=== PATIENT | female | born 1975 | race Caucasian/White ===

== ENCOUNTER 2017-02-18 16:35 | Emergency (ER) | payer OTHER ==
--- NOTE | 2017-02-18 19:35 | DIAGNOSTIC IMAGING REPORT ---
PROCEDURE: XR CHEST 2 VIEW INDICATION: CHEST PAIN TECHNIQUE: PA and lateral views. COMPARISON: None. FINDINGS: Allowing for overlying wires and electrodes, lungs are clear. Heart and mediastinum are normal. Thorax is normal. IMPRESSION: 1. Negative chest.
--- NOTE | 2017-02-18 19:48 | ED CLINICAL REPORT ---
Clinical Report - Physicians/Mid Levels [facility] [address] [place] [address] 02/18/2017 16:36 Patient: ANNETTE February Arrived- By private vehicle. Historian- patient. HISTORY OF PRESENT ILLNESS Chief Complaint: CHEST PAIN. It is described as dull. No radiation. At its maximum, severity described as moderate. When seen in the E.D., severity described as moderate. Modifying factors. Not worsened by anything. Not relieved by anything. This started today and is still present. It is not gone now. It was gradual in onset and has been constant and waxing/waning (several weeks). The patient cannot recall the circumstances at the onset. No nausea, vomiting, difficulty breathing or diaphoresis. (has been having decreased appetite, cough, fever, facial swelling, joint pain, malaise as well. when all of this started. no sick contacts.). No additional chest pain. Similar symptoms previously: None. Recent medical care: The patient was seen recently in a clinic (referred here). REVIEW OF SYSTEMS The patient has had fever, chills, a cough and headache and blurred vision. She has had abdominal pain, black stools, joint pain, and bloody stools. All systems otherwise negative, except as recorded above. PAST HISTORY See nurses notes. Problems: no known problems. Medications: None. Allergies: Opiods. SOCIAL HISTORY Smoker- current status unknown. Occasional alcohol use. History of drug use: marijuana. No recent travel. Is a local resident. ADDITIONAL NOTES The nursing notes have been reviewed. PHYSICAL EXAM Vital Signs: 02/18/2017 16:47 BP: 208/110. HR: 76. RR: 20. O2 saturation: 99%. Temp: 98.4 F. Blood pressure normal. Oxygen saturation normal. Appearance: Alert. Oriented X3. No acute distress. No marfanoid habitus. Eyes: Pupils equal, round and reactive to light. Eyes normal inspection. (no facial edema). ENT: Ears normal. Nose normal. Pharynx normal. Neck: Normal inspection. Neck supple. CVS: Normal heart rate and rhythm. Heart sounds normal. Pulses normal. Respiratory: No respiratory distress. Breath sounds normal. Chest nontender. No rales, rhonchi or wheezes. Abdomen: Soft and nontender. Bowel sounds normal. Back: Normal external inspection. Skin: Skin warm and dry. Normal skin color. No rash. Normal skin turgor. Extremities: Extremities exhibit normal ROM. No lower extremity edema. Neuro: Oriented X 3. No motor deficit. No sensory deficit. LABS, X-RAYS, AND EKG EKG: Normal sinus rhythm. Normal P waves. Normal YAKOV. Normal QRS complex. Normal axis. Normal ST and T waves, QT and QTc. The study has been interpreted contemporaneously by me. The study has been independently viewed by me. The EKG appears to be a good tracing. Chest X-ray: (PROCEDURE: XR CHEST 2 VIEW INDICATION: CHEST PAIN TECHNIQUE: PA and lateral views. COMPARISON: None. FINDINGS: Allowing for overlying wires and electrodes, lungs are clear. Heart and mediastinum are normal. Thorax is normal. IMPRESSION: 1. Negative chest.). Views: PA and lateral. The X-rays were independently viewed by me and interpreted by the radiologist. The X-rays were discussed with the radiologist (via pacs). Laboratory Tests: UA-Culture if indicated: (RIVKA: 02/18/2017 17:40) ( MsgRcvd 02/18/2017 18:22) Final results Test Result Flag Units (Reference) URINE COLOR YELLOW URINE APPEARANCE CLEAR URINE GLUCOSE NEGATIVE (NEGATIVE) URINE BILIRUBIN NEGATIVE (NEGATIVE) URINE KETONE NEGATIVE (NEGATIVE) URINE SPECIFIC GRAVITY 1.025 (1.010-1.030) URINE PH 6.0 (5.0-8.0) URINE PROTEIN 3+ (NEGATIVE) URINE UROBILINOGEN 0.2 EU/dL (0.2-1.0) URINE NITRITE NEGATIVE (NEGATIVE) URINE BLOOD 3+ (NEGATIVE) URINE LEUK ESTERASE NEGATIVE (NEGATIVE) URINE RBC 10-25 rbc/hpf (0-1) URINE WBC 10-15 wbc/hpf (0-1) URINE EPITHELIAL CELLS 10-15 EPI/hpf (0-5) URINE BACTERIA MODERATE (2+ TO 3+) (NONE SEEN) URINE COMMENT CULTURE INDICATED 10-15 HYALINE CAST. FEW YEAST.URINE CULTURES ARE SET-UP BASED ON THE FOLLOWING CRITERIA:POSITIVE NITRITEPOSITIVE LEUKOCYTE ESTERASEGREATER THAN 10 WHITE BLOOD CELLSMODERATE (2+) OR GREATER BACTERIA Urine: (RIVKA: 02/18/2017 17:40) ( [facility] 02/18/2017 18:08) Final results Test Result Flag Units (Reference) URINE NEGATIVE CBC w Diff: (RIVKA: 02/18/2017 17:34) ( [facility] 02/18/2017 17:47) Final results Test Result Flag Units (Reference) WHITE BLOOD COUNT 4.8 K/uL (4.5-11.5) RED BLOOD COUNT 3.75 L M/uL (4.00-5.20) HEMOGLOBIN 11.7 L gm/dL (12.0-16.0) HEMATOCRIT 34.6 L % (36.0-46.0) MEAN CELL VOLUME 92 fL (80-100) MEAN CORPUSCULAR HGB 31 pg (26-34) MEAN CORPUSCULAR HGB CONC 34 g/dL (31-37) RED CELL DISTRIBUTION WIDTH 12.6 % (11.6-14.8) PLATELET COUNT 211 K/uL (150-400) NEUTROPHIL % 73.5 % (50-75) LYMPH % 16.0 L % (25-40) MONO % 10.0 % (3-14) EOSINOPHIL % 0.1 % (0-4) BASOPHIL % 0.4 % (0-2) PT with INR: (RIVKA: 02/18/2017 17:34) ( [facility] 02/18/2017 17:52) Final results Test Result Flag Units (Reference) INR 0.8 (0.8-1.2) Low Intensity Therapy: INR 1.5-2.0 PT range 18.5-23.1Mod.Intensity Therapy: INR 2.0-3.0 PT range 23.1-31.5High Intensity Therapy: INR 2.5-3.5 PT range 27.4-35.5High Intensity Therapy 2: INR 3.0-4.0 PT range 31.5-39.3 BNP: (RIVKA: 02/18/2017 17:34) ( MsgRcvd 02/18/2017 18:10) Final results Test Result Flag Units (Reference) B-TYPE NATRIURETIC PEPTIDE 119 H pg/ml (5-100) CMP: (RIVKA: 02/18/2017 17:34) ( MsgRcvd 02/18/2017 19:16) Final results Test Result Flag Units (Reference) GLUCOSE 106 mg/dL (70-110) BUN 21 H mg/dL (7-18) CREATININE 1.1 mg/dL (0.6-1.3) Estimated GFR 57.89 mL/min Estimated GFR- >60 mL/min Note: Persistent reduction over 3 months in eGFR<60 mL/min/1.73 m2 defines CKD. Patients with eGFR values>=60 mL/min/1.73 m2 may also have CKD if evidence ofpersistent proteinuria. Additional information may be foundat www.kidney.org. SODIUM 135 L mmol/L (136-145) POTASSIUM 5.2 H mmol/L (3.5-5.1) CHLORIDE 106 mmol/L (98-107) CARBON DIOXIDE 24 mmol/L (21-32) CALCIUM 8.3 L mg/dL (8.5-10.1) TOTAL PROTEIN 5.9 L g/dL (6.4-8.2) ALBUMIN 2.5 L g/dL (3.3-5.0) BILIRUBIN, TOTAL 0.3 mg/dL (0.0-1.0) ALKALINE PHOSPHATASE 50 U/L (46-116) AST (SGOT) 17 U/L (15-37) ALT (SGPT) 16 U/L (12-78) TROPONIN I <0.05 ng/mL (0.00-1.5) TROPONIN REFERENCE RANGE:<0.1 NEGATIVE0.1-1.5 INDETERMINANT>1.5 POSITIVE CHOLESTEROL 197 mg/dL (140-200) TRIGLYCERIDES 100 mg/dL (30-200) HDL CHOLESTEROL 44 mg/dL (32-96) LDL,CALCULATED 133 mg/dL Normal range for LDL by direct measurement is 66-178The LDL reported is a calculated value and may approximatea direct measurement. CHOL/HDL 4.5 LDL/HDL 3.0 CORONARY RISK FACTOR 0.9 (0.4-1.0) Culture, Urine: (RIVKA: 02/18/2017 17:40) ( MsgRcvd 02/20/2017 10:38) Final results Test Result Flag Units (Reference) CULTURE, URINE DATE: 02/20/17 NO SIGNIFICANT ISOLATION: NO SIGNIFICANT ISOLATION PRELIM REPORT: FINAL REPORT . PROGRESS AND PROCEDURES Course of Care: the patient is a pleasant 41-year-old female presenting for evaluation of multiple medical concerns. At this time metabolic versus autoimmuneetiology favored. Patient will be evaluated with extensive laboratory workup including urinalysis, BNP, troponin, chest x-ray, EKG CBC, andCMP. Patient is agreeable to the treatment plan. Patient is currently resting in bed and in no acute distress. The concern for nephrotic syndrome given the patient's reported facial edema. No signs of infection noted to the patient'sface at this time. We'll monitor closely. Patient's workup was remarkable for elevated protein in the patient's urine. Patient also has signs of urinary tract infection. Because of the patient's proteinuria, We will investigate the patient's possible nephrotic syndrome with a lipid panel. There was no order in the patient's chart for a lipid panel. Head: The labs and manually enter a lipid panel for the patient. Patient is agreeable to treatment plan. Patient's liver panel is noted to be unremarkable. No acute findings noted. Would make nephrotic syndrome most likely however patient will still need evaluation for the elevated protein in her urine. Patient is noted to have a urinary tract infection. Antibiotic provided here in the emergency department as well as prescription. The rest of the patient's laboratory studies is otherwise unremarkable including EKG and chest x-ray. Had long discussion in regards to patient's symptoms here in the emergency department and need for prompt outpatient follow-up and management of her symptoms. Do not fill patient is admitted to the hospital require further emergency department workup/evaluation. Patient's blood pressure significantly improved while here in the emergency department. No signs of end organ damage. i discussed with the patient'sin regards to her workup here in the emergency department including diagnosis, home care, follow-up, and return precautions. All questions have been answered. The patient expressed understanding of these instructions and was agreeable to them. CLINICAL IMPRESSION 02/18/2017 19:00 BP: 161/87. HR: 78. RR: 20. O2 saturation: 99%. Temp: 98.6 F. Hypertensive. Oxygen saturation normal. Atypical chest pain (acute). Acute urinary tract infection. (acute facial edema). acute proteinuria. INSTRUCTIONS Warnings: GENERAL WARNINGS: Return or contact your physician immediately if your condition worsens or changes unexpectedly, if not improving as expected, or if other problems arise. SPECIFICALLY, return if you develop chest, neck, jaw, shoulder, arm, or back pain, difficulty breathing, a fluttering sensation in your chest, lightheadedness, fainting, excessive fatigue, or sudden sweating. Your Current Medications: CONTINUE TAKING THE FOLLOWING MEDICATIONS: None*. Prescription Medications: Keflex 500 mg: take 1 capsule orally every 8 hours for 5 days. No refill. Substitution is permissible. (disp 15 caps) Follow-up: Return to the emergency department as needed. Follow up with your doctor in three days. Reason for referral: recheck today's concerns. Summary of care provided to patient via paper. Screening today revealed the patient's blood pressure to be in the normal range. The patient should follow up with a primary care provider for blood pressure management. Understanding of the discharge instructions verbalized by patient. Follow-up with: [facility], , , [address], , [place], [address] Follow up in three. Reason for referral: contact if you do not have a primary care doctor. Summary of care provided to patient via paper. (Electronically signed by Elfego Cameron Dr. 02/21/2017 11:43)
--- NOTE | 2017-02-18 19:48 | ED ORDER SUMMARY ---
..... Patient: ANNETTEFebruary OrderSheet [facility] VisitID: [id number] [address] [place] [address] 41y, F Registration Date/Time: 02/18/2017 ORDER SHEET Weight: 51.2 kg (stated) Allergies: Opiods GENERAL ORDERS: Chest 2V Urgent (16:55 02/18/2017 Israel Long) (Ack 16:59 KHoerner) (19:05 LWhalen R.N.) Fuel Retrofitting Technician (Continuous) (CP) (16:56 02/18/2017 Israel Long) (Ack 16:59 KHoerner) (17:25 LWhalen R.N.) CBC w Diff Urgent (16:56 02/18/2017 Israel Long) (Ack 16:59 KHoerner) (17:37 KHoerner) CMP Urgent (16:56 02/18/2017 Israel Long) (Ack 16:59 KHoerner) (17:37 KHoerner) UA-Culture if indicated Urgent (16:56 02/18/2017 Israel Logn) (Ack 16:59 KHoerner) (18:28 KHoerner) PT with INR Urgent (16:56 02/18/2017 Israel Long) (Ack 16:59 KHoerner) (17:37 KHoerner) Troponin-I Urgent (16:56 02/18/2017 Israel Long) (Ack 16:59 KHoerner) (17:37 KHoerner) BNP Urgent (16:56 02/18/2017 Israel Long) (Ack 16:59 KHoerner) (17:37 KHoerner) Urine Urgent (16:56 02/18/2017 Israel Long) (Ack 16:59 KHoerner) (18:28 KHoerner) Pulse oximeter (16:56 02/18/2017 Israel Long) (Ack 16:59 KHoerner) (17:25 LWhalen R.N.) EKG - ER Stat (17:14 02/18/2017 Israel Long) (17:25 David R.N.) (17:25 Antwan) - (lipid panel) (19:00 02/18/2017 Israel Long) (19:03 Antwan) MEDICATION ORDERS: Keflex PO 500 mg (NOW) (19:34 02/18/2017 Israel Long) (Ack 19:41 Yesi R.N.) (19:44 Yesi R.N.) Keflex PO 500 mg (NOW) (19:46 02/18/2017 Israel Long) (Cancelled: Duplicate Order19:47 Yesi Armenta) IV FLUIDS: IV Saline Lock (16:56 02/18/2017 Israel Long) (17:25 David R.NLoyda) IV NS : initial bolus 1000 mL (1000 mL/hr), then none - for X1 (NOW) (18:58 02/18/2017 Israel Long) (19:17 CheyanneQuivearleth R.N.) ORDER SHEET NOTES: [Electronically signed by Adam Bustos R.N. (19:58 02/18/2017)] [Electronically signed by Elfego Cameron Dr. (11:43 02/21/2017)] [Electronically locked/signed by Adam Bustos R.N. (19:58 02/18/2017)]
--- NOTE | 2017-02-18 19:48 | ED NURSING NOTES ---
Clinical Report - Nurses [place] [address] [place] [address] 02/18/2017 16:36 Patient: SARAH BRYANT TRIAGE Triage time 16:47 Feb 18 2017. Acuity: LEVEL 3. Chief Complaint: FEVER, CHILLS, MUSCLE ACHES, SWELLING, FATIGUE, POOR APPETITE, BLOOD PRESSURE CHECK, HEADACHE, DIZZINESS, NUMBNESS, WEAKNESS, CONFUSION, EYE PAIN, EAR PAIN, NASAL CONGESTION, COUGH, NAUSEA, VOMITING, DIARRHEA, NECK PAIN, BACK PAIN and JOINT PAIN. ARINA COMA SCORE: Arina Coma Scale: 15- eyes open spontaneously (4); best verbal response- oriented x 4 (5); best motor response- obeys commands (6). --16:53 Clara Toribio R.N. 16:47 02/18/17. BP: 208/110. HR: 76. RR: 20. O2 saturation: 99%. Temp: 98.4 F. Pain level now 0/10. --16:53 Clara Toribio R.N. Weight: 51.2 kg stated. Height/Length: 64 inches Per Patient. BMI: 19.4. --16:52 Clara Toribio R.N. Medications None. --16:50 Clara Toribio R.N. Allergies Opiods. --16:50 Clara Toribio R.N. History Arrived by private vehicle. Historian: patient. Accompanied by family. Primary physician (Miguel liang). Onset. (Has been going on for three weeks). She has had fever, weakness, a cough and skin rash. Reports muscle aches. PAST MEDICAL HX: Immunizations: status is unknown. Last normal menstrual period- January 26. SOCIAL HX: Current every day heavy tobacco smoker (cigarette)- less than 1 pack per day. Occasional alcohol use. History of drug use: marijuana. SELF HARM ASSESSMENT: A self harm assessment was performed. The patient answered "no" to the question "Have you recently felt down, depressed, or hopeless?" and "Do you have thoughts of harming or killing yourself?". FALL RISK ASSESSMENT: Fall risk assessment completed. No fall risk identified. NUTRITIONAL RISK ASSESSMENT: The nutritional risk assessment revealed no deficiencies. FUNCTIONAL ASSESSMENT: Functional assessment: no impairments noted. LEARNING NEEDS ASSESSMENT: The learning needs assessment revealed no barriers. ABUSE ASSESSMENT: Abuse assessment: (yes) The patient was asked "Do you feel safe in your home?". SKIN INTEGRITY ASSESSMENT: Skin integrity risk assessment completed. No skin integrity risk identified. --16:53 Clara Toribio R.N. PROBLEMS: no known problems. ADDITIONAL SURGERIES: Laparoscopy. --16:51 Clara Toribio R.N. Interventions ID and allergy band on patient. --16:53 Clara Toribio R.N. PHYSICAL ASSESSMENT Ambulatory to room. GENERAL / NEURO / PSYCH: Alert. Oriented X 4. Appears in no acute distress. HEENT: Pupils equal, round and reactive to light. No facial asymmetry noted. Mucous membranes are pink. RESPIRATORY: Respirations not labored. Chest nontender. Breath sounds within normal limits. CVS: Normal sinus rhythm noted. Capillary refill less than 2 seconds. Pulses within normal limits. GI / : Abdomen soft and nontender and normal bowel sounds. SKIN: Skin is warm and dry. Skin rash. Normal skin turgor. --19:14 Clara Toribio R.N. NURSING PROGRESS NOTES 17:25 02/18/2017 Site #1 started via IV in the right antecubital space with an 20g angiocath, with aseptic technique and good blood return; one attempt. Blood drawn: rainbow set. Labeled in the presence of the patient and sent to the lab. Saline lock flushed with 10 mL saline. --17:25 Clara Toribio R.N. 17:26 02/18/17. EKG time: (1716). EKG was performed by a tech and shown to the ED physician. --17:27 Stacia Leroy 17:37 02/18/17. Patient ID band checked for patient name and birthdate: patient confirmed. Blood samples drawn from the left antecubital space with 23g butterfly by tech ; labeled in presence of the patient: rainbow set. --17:37 Stacia Leroy 18:00 02/18/17. BP: 173/89. HR: 77. RR: 18. O2 saturation: 99%. 17:15 02/18/17. BP: 178/94. HR: 75. RR: 18. O2 saturation: 100%. 17:00 02/18/17. BP: 178/98. HR: 78. RR: 18. O2 saturation: 100%. --18:35 lCara Toribio R.N. ( Patient in x-ray.). --18:35 Clara Toribio R.N. 18:59 02/18/17. BP: 161/87. HR: 78. RR: 20. O2 saturation: 99%. Temp: 98.6 F. Pain level now 0/10. --19:00 Clara Toribio R.N. 19:08 02/18/2017 Site #1 removed. Catheter intact. Bandage applied (removed by Brady ELLINGTON). --19:16 Adam Bustos R.N. 19:11 02/18/2017 Site #2 started via IV in the left antecubital space with an 20g angiocath, with aseptic technique and good blood return; one attempt. Saline lock flushed. --19:16 Adam Bustos R.N. 19:13 02/18/2017 Started bag #1 1000 mL IV Fluids IV NS (Saline); at 1000 mL/hr over 1 hour(s) via site #2 --19:17 Adam Bustos R.N. 19:05. Care transferred and report received. --19:18 Adam Bustos R.N. 19:44 02/18/2017 Keflex (Cephalexin) PO 500 mg given. Allergies verified and confirmed 5 rights. --19:44 Adam Bustos R.N. 19:44 02/18/2017 IV Fluids IV NS Discontinued: bag #1 infused. Total amount infused: 1000 mL. IV patency established. IV site checked: no pain, redness, or swelling. IV flushed thoroughly. --19:46 Adam Bustos R.N. 19:53. The patient is calm and resting quietly. RESPIRATORY: No respiratory distress. SKIN: Skin is warm and dry. Skin color within normal limits. --19:58 Adam Bustos R.N. DISPOSITION / DISCHARGE 19:53 02/18/2017 Site #2 removed upon discharge. Catheter intact. Bandage applied. --19:57 Adam Bustos R.N. Departure time: 19:57. Condition at departure: stable. No learning barriers present. Discharge instructions provided and reviewed with the patient. Reviewed medication(s) side effects, precautions, dosing and course information. Prescription(s) given to the patient. Patient verbalized understanding. Written instructions provided in Indonesian. The patient was discharged home and accompanied by florist designer. She left the Emergency Department ambulatory and via private vehicle. Voltage Regulator Assembler driving. FALL RISK ASSESSMENT: Fall risk assessment completed. No fall risk identified. --19:57 Adam Bustos R.N. 19:45 02/18/17. BP: 165/94. HR: 90. RR: 15. O2 saturation: 100% on room air. Pain level now: 0/10. --19:57 Adam Bustos R.N. Locked/Released at 02/18/2017 19:58 by Adam Bustos R.N.
--- NOTE | 2017-02-18 19:48 | ED NURSING NOTES ---
Clinical Report - Nurses [facility] [address] [place] [address] 02/18/2017 16:36 Patient: SARAH BRYANT TRIAGE Triage time 16:47 Feb 18 2017. Acuity: LEVEL 3. Chief Complaint: FEVER, CHILLS, MUSCLE ACHES, SWELLING, FATIGUE, POOR APPETITE, BLOOD PRESSURE CHECK, HEADACHE, DIZZINESS, NUMBNESS, WEAKNESS, CONFUSION, EYE PAIN, EAR PAIN, NASAL CONGESTION, COUGH, NAUSEA, VOMITING, DIARRHEA, NECK PAIN, BACK PAIN and JOINT PAIN. ARINA COMA SCORE: Arina Coma Scale: 15- eyes open spontaneously (4); best verbal response- oriented x 4 (5); best motor response- obeys commands (6). --16:53 Clara Toribio R.N. 16:47 02/18/17. BP: 208/110. HR: 76. RR: 20. O2 saturation: 99%. Temp: 98.4 F. Pain level now 0/10. --16:53 Clara Toribio R.N. Weight: 51.2 kg stated. Height/Length: 64 inches Per Patient. BMI: 19.4. --16:52 Clara Toribio R.N. Medications None. --16:50 Clara Toribio R.N. Allergies Opiods. --16:50 Clara Toribio R.N. History Arrived by private vehicle. Historian: patient. Accompanied by family. Primary physician (Miguel liang). Onset. (Has been going on for three weeks). She has had fever, weakness, a cough and skin rash. Reports muscle aches. PAST MEDICAL HX: Immunizations: status is unknown. Last normal menstrual period- January 26. SOCIAL HX: Current every day heavy tobacco smoker (cigarette)- less than 1 pack per day. Occasional alcohol use. History of drug use: marijuana. SELF HARM ASSESSMENT: A self harm assessment was performed. The patient answered "no" to the question "Have you recently felt down, depressed, or hopeless?" and "Do you have thoughts of harming or killing yourself?". FALL RISK ASSESSMENT: Fall risk assessment completed. No fall risk identified. NUTRITIONAL RISK ASSESSMENT: The nutritional risk assessment revealed no deficiencies. FUNCTIONAL ASSESSMENT: Functional assessment: no impairments noted. LEARNING NEEDS ASSESSMENT: The learning needs assessment revealed no barriers. ABUSE ASSESSMENT: Abuse assessment: (yes) The patient was asked "Do you feel safe in your home?". SKIN INTEGRITY ASSESSMENT: Skin integrity risk assessment completed. No skin integrity risk identified. --16:53 Clara Toribio R.N. PROBLEMS: no known problems. ADDITIONAL SURGERIES: Laparoscopy. --16:51 Clara Toribio R.N. Interventions ID and allergy band on patient. --16:53 Clara Toribio R.N. PHYSICAL ASSESSMENT Ambulatory to room. GENERAL / NEURO / PSYCH: Alert. Oriented X 4. Appears in no acute distress. HEENT: Pupils equal, round and reactive to light. No facial asymmetry noted. Mucous membranes are pink. RESPIRATORY: Respirations not labored. Chest nontender. Breath sounds within normal limits. CVS: Normal sinus rhythm noted. Capillary refill less than 2 seconds. Pulses within normal limits. GI / : Abdomen soft and nontender and normal bowel sounds. SKIN: Skin is warm and dry. Skin rash. Normal skin turgor. --19:14 Clara Toribio R.N. NURSING PROGRESS NOTES 17:25 02/18/2017 Site #1 started via IV in the right antecubital space with an 20g angiocath, with aseptic technique and good blood return; one attempt. Blood drawn: rainbow set. Labeled in the presence of the patient and sent to the lab. Saline lock flushed with 10 mL saline. --17:25 Clara Toribio R.N. 17:26 02/18/17. EKG time: (1716). EKG was performed by a tech and shown to the ED physician. --17:27 Stacia Leroy 17:37 02/18/17. Patient ID band checked for patient name and birthdate: patient confirmed. Blood samples drawn from the left antecubital space with 23g butterfly by tech ; labeled in presence of the patient: rainbow set. --17:37 Stacia Leroy 18:00 02/18/17. BP: 173/89. HR: 77. RR: 18. O2 saturation: 99%. 17:15 02/18/17. BP: 178/94. HR: 75. RR: 18. O2 saturation: 100%. 17:00 02/18/17. BP: 178/98. HR: 78. RR: 18. O2 saturation: 100%. --18:35 Clara Toribio R.N. ( Patient in x-ray.). --18:35 Clara Toribio R.N. 18:59 02/18/17. BP: 161/87. HR: 78. RR: 20. O2 saturation: 99%. Temp: 98.6 F. Pain level now 0/10. --19:00 Clara Toribio R.N. 19:08 02/18/2017 Site #1 removed. Catheter intact. Bandage applied (removed by Brady ELLINGTON). --19:16 Adam Bustos R.N. 19:11 02/18/2017 Site #2 started via IV in the left antecubital space with an 20g angiocath, with aseptic technique and good blood return; one attempt. Saline lock flushed. --19:16 Adam Bustos R.N. 19:13 02/18/2017 Started bag #1 1000 mL IV Fluids IV NS (Saline); at 1000 mL/hr over 1 hour(s) via site #2 --19:17 Adam Bustos R.N. 19:05. Care transferred and report received. --19:18 Adam Bustos R.N. 19:44 02/18/2017 Keflex (Cephalexin) PO 500 mg given. Allergies verified and confirmed 5 rights. --19:44 Adam Bustos R.N. 19:44 02/18/2017 IV Fluids IV NS Discontinued: bag #1 infused. Total amount infused: 1000 mL. IV patency established. IV site checked: no pain, redness, or swelling. IV flushed thoroughly. --19:46 Adam Bustos R.N. 19:53. The patient is calm and resting quietly. RESPIRATORY: No respiratory distress. SKIN: Skin is warm and dry. Skin color within normal limits. --19:58 Adam Bustos R.N. DISPOSITION / DISCHARGE 19:53 02/18/2017 Site #2 removed upon discharge. Catheter intact. Bandage applied. --19:57 Adam Bustos R.N. Departure time: 19:57. Condition at departure: stable. No learning barriers present. Discharge instructions provided and reviewed with the patient. Reviewed medication(s) side effects, precautions, dosing and course information. Prescription(s) given to the patient. Patient verbalized understanding. Written instructions provided in Slovenian. The patient was discharged home and accompanied by premium note interest calculator clerk. She left the Emergency Department ambulatory and via private vehicle. Mat Tester driving. FALL RISK ASSESSMENT: Fall risk assessment completed. No fall risk identified. --19:57 Adam Bustos R.N. 19:45 02/18/17. BP: 165/94. HR: 90. RR: 15. O2 saturation: 100% on room air. Pain level now: 0/10. --19:57 Adam Bustos R.N. Locked/Released at 02/18/2017 19:58 by Adam Bustos R.N.
--- NOTE | 2017-02-18 19:48 | ED ORDER SUMMARY ---
..... Patient: ANNETTEFebruary OrderSheet [facility] VisitID: [id number] [address] [place] [address] 41y, F Registration Date/Time: 02/18/2017 ORDER SHEET Weight: 51.2 kg (stated) Allergies: Opiods GENERAL ORDERS: Chest 2V Urgent (16:55 02/18/2017 Israel Long) (Ack 16:59 KHoerner) (19:05 LWhalen R.N.) Elementary [employer] Librarian (Continuous) (CP) (16:56 02/18/2017 Israel Long) (Ack 16:59 KHoerner) (17:25 LWhalen R.N.) CBC w Diff Urgent (16:56 02/18/2017 Israel Long) (Ack 16:59 KHoerner) (17:37 KHoerner) CMP Urgent (16:56 02/18/2017 Israel Long) (Ack 16:59 KHoerner) (17:37 KHoerner) UA-Culture if indicated Urgent (16:56 02/18/2017 Israel Long) (Ack 16:59 KHoerner) (18:28 KHoerner) PT with INR Urgent (16:56 02/18/2017 Israel Long) (Ack 16:59 KHoerner) (17:37 KHoerner) Troponin-I Urgent (16:56 02/18/2017 Israel Long) (Ack 16:59 KHoerner) (17:37 KHoerner) BNP Urgent (16:56 02/18/2017 Israel Long) (Ack 16:59 KHoerner) (17:37 KHoerner) Urine Urgent (16:56 02/18/2017 Israel Long) (Ack 16:59 KHoerner) (18:28 KHoerner) Pulse oximeter (16:56 02/18/2017 Israel Long) (Ack 16:59 KHoerner) (17:25 LWhalen R.N.) EKG - ER Stat (17:14 02/18/2017 Israel Long) (17:25 David R.N.) (17:25 Antwan) - (lipid panel) (19:00 02/18/2017 Israel Long) (19:03 Antwan) MEDICATION ORDERS: Keflex PO 500 mg (NOW) (19:34 02/18/2017 Israel Long) (Ack 19:41 Yesi R.N.) (19:44 Yesi R.N.) Keflex PO 500 mg (NOW) (19:46 02/18/2017 Israel Long) (Cancelled: Duplicate Order19:47 Yesi Armenta) IV FLUIDS: IV Saline Lock (16:56 02/18/2017 Israel Long) (17:25 David R.NLoyda) IV NS : initial bolus 1000 mL (1000 mL/hr), then none - for X1 (NOW) (18:58 02/18/2017 Israel Long) (19:17 CheyanneQuivearleth R.N.) ORDER SHEET NOTES: [Electronically signed by Adam Bustos R.N. (19:58 02/18/2017)] [Electronically signed by Elfego Cameron Dr. (11:43 02/21/2017)] [Electronically locked/signed by Adam Bustos R.N. (19:58 02/18/2017)]
--- NOTE | 2017-02-21 11:43 | ED MED RECONCILIATION SUMMARY ---
Patient: ANNETTE, February Medication Reconciliation Report [facility] VisitID: [id number] [address] [place] [address] 41y, F Registration Date/Time: 02/18/2017 Weight: 51.2 kg Height/Length: 64 in. BMI: 19.4 ALLERGIES: Opiods The patient's Home Medications are listed below: NONE. The source(s) of the original Home Medication information: Not obtained. The following Medications were given to the patient in the Emergency Department: IV NS IV Fluids bolus 0, then 1000 mL/hr, administered: 02/18/2017 7:13:00 PM Keflex [PO] PO 500 mg, administered: 02/18/2017 7:44:00 PM The following Medications were prescribed to the patient: Keflex 500 mg: take 1 capsule orally every 8 hours for 5 days. No refill. Substitution is permissible.(disp 15 caps) -- Elfego Cameron Dr.
--- NOTE | 2017-02-21 11:43 | ED MED RECONCILIATION SUMMARY ---
Patient: ANNETTE, February Medication Reconciliation Report [facility] VisitID: [id number] [address] [place] [address] 41y, F Registration Date/Time: 02/18/2017 Weight: 51.2 kg Height/Length: 64 in. BMI: 19.4 ALLERGIES: Opiods The patient's Home Medications are listed below: NONE. The source(s) of the original Home Medication information: Not obtained. The following Medications were given to the patient in the Emergency Department: IV NS IV Fluids bolus 0, then 1000 mL/hr, administered: 02/18/2017 7:13:00 PM Keflex [PO] PO 500 mg, administered: 02/18/2017 7:44:00 PM The following Medications were prescribed to the patient: Keflex 500 mg: take 1 capsule orally every 8 hours for 5 days. No refill. Substitution is permissible.(disp 15 caps) -- Elfego Cameron Dr.
--- NOTE | 2017-02-21 11:43 | ED MAR SUMMARY ---
..... Medication Administration Record [facility] [address] [place] [address] Patient: SARAH BRYANT Visit ID: [id number] 41y, F Weight: 51.2 kg Height/Length: 64 in BMI: 19.4 ALLERGIES: Opiods Start 19:13 02/18/2017 Adam Bustos R.N., Stop 19:44 02/18/2017 Adam Bustos RLoydaN. Medication Administered: IV NS (SALINE), Dose: IV Fluids over 1 hour(s), Rate: 1000 mL/hr, Dispensed: 1000 mL bag, Site: #2 left AC. Medication Ordered: IV NS : initial bolus 1000 mL (1000 mL/hr), then none - for X1 (NOW). Given 19:02/18/2017 Adam Bustos, R.N. Medication Administered: KEFLEX [PO] (CEPHALEXIN), Dose: 500 mg PO. Medication Ordered: Keflex PO 500 mg (NOW).
--- NOTE | 2017-02-21 11:43 | ED DISCHARGE INSTRUCTIONS ---
Patient: ANNETTE February General Instructions [facility] VisitID: [id number] [address] [place] [address] 41[place], F Registration Date/Time: 02/18/2017 02/18/2017 19:00 BP: 161/87. HR: 78. RR: 20. O2 saturation: 99%. Temp: 98.6 F. Hypertensive. Oxygen saturation normal. Atypical chest pain (acute). Acute urinary tract infection. (acute facial edema). acute proteinuria. INSTRUCTIONS Warnings: GENERAL WARNINGS: Return or contact your physician immediately if your condition worsens or changes unexpectedly, if not improving as expected, or if other problems arise. SPECIFICALLY, return if you develop chest, neck, jaw, shoulder, arm, or back pain, difficulty breathing, a fluttering sensation in your chest, lightheadedness, fainting, excessive fatigue, or sudden sweating. Your Current Medications: CONTINUE TAKING THE FOLLOWING MEDICATIONS: None*. Prescription Medications: Keflex 500 mg: take 1 capsule orally every 8 hours for 5 days. No refill. Substitution is permissible. (disp 15 caps) Follow-up: Return to the emergency department as needed. Follow up with your doctor in three days. Reason for referral: recheck today's concerns. Summary of care provided to patient via paper. Screening today revealed the patient's blood pressure to be in the normal range. The patient should follow up with a primary care provider for blood pressure management. Understanding of the discharge instructions verbalized by patient. Follow-up with: [facility], , , [address], [place], [address] Follow up in three. Reason for referral: contact if you do not have a primary care doctor. Summary of care provided to patient via paper. ADDITIONAL INFORMATION Chest Pain, Uncertain Cause Chest pain can happen for a number of reasons. Sometimes the cause can not be determined. If yourcondition does not seem serious, and your pain does not appear to be coming from your heart, your doctor may recommend watching it closely. Sometimes the signs of a serious problem take more time to appear. Therefore, watch for the warning signs listed below. Home care After your visit, follow these recommendations: Rest today and avoid strenuous activity. Take any prescribed medicine as directed. Follow-up care Follow up with your doctor or this facility as instructed or if you do not start to feel better within 24 hours. Call 911 Get immediate medical attention if any of the following occur: A change in the type of pain: if it feels different, becomes more severe, lasts longer, or begins to spread into your shoulder, arm, neck, jaw or back Shortness of breath or increased pain with breathing Weakness, dizziness, or fainting Rapid heart beat Get prompt medical attention Call your doctor right away if any of the following occur: Cough with dark colored sputum (phlegm) or blood Fever of 100.4F(38C) or higher, or as directed by your health care provider Swelling, pain or redness in one leg Bladder Infection,Female (Adult) A bladder infection ("cystitis" or "UTI") usually causes a constant urge to urinate and a burning when passing urine. Urine may be cloudy, smelly or dark. There may be pain in the lower abdomen. A bladder infection occurs when bacteria from the vaginal area enter the bladder opening (urethra). This can occur from sexual intercourse, wearing tight clothing, dehydration and other factors. Home Care: Drink lots of fluids (at least 6-8 glasses a day, unless you must restrict fluids for other medical reasons). This will force the medicine into your urinary system and flush the bacteria out of your body. Avoid sexual intercourse until your symptoms are gone. Avoid caffeine, alcohol and spicy foods. These can irritate the bladder. A bladder infection is treated with antibiotics. You may also be given Pyridium (generic = phenazopyridine) to reduce the burning sensation. This medicine will cause your urine to become a bright orange color. The orange urine may stain clothing. You may wear a pad or panty-liner to protect clothing. Preventing Future Infections: Always wipe from front to back after a bowel movement. Keep the genital area clean and dry. Drink plenty of fluids each day to avoid dehydration. Both sexual partners should wash before intercourse. Urinate right after intercourse to flush out the bladder. Wear cotton underwear and cotton-lined panty hose; avoid tight-fitting pants. If you are on control pills and are having frequent bladder infections, discuss with your doctor. Follow Up: Return to this facility or see your doctor if ALL symptoms are not gone after three days of treatment. Get Prompt Medical Attention if any of the following occur: Fever of 100.4F (38C) or higher, or as directed by your healthcare provider No improvement by the third day of treatment Increasing back or abdominal pain Repeated vomiting; unable to keep medicine down Weakness, dizziness or fainting Vaginal discharge Pain, redness or swelling in the labia (outer vaginal area) Cephalexin Monohydrate Oral tablet What is this medicine? CEPHALEXIN (sef a ELIZABETH in) is a cephalosporin antibiotic. It is used to treat certain kinds of bacterial infections It will not work for colds, flu, or other viral infections. How should I use this medicine? Take this medicine by mouth with a full glass of water. Follow the directions on the prescription label. This medicine can be taken with or without food. Take your medicine at regular intervals. Do not take your medicine more often than directed. Take all of your medicine as directed even if you think you are better. Do not skip doses or stop your medicine early. Talk to your project control manager regarding the use of this medicine in children. While this drug may be prescribed for selected conditions, precautions do apply. What side effects may I notice from receiving this medicine? Side effects that you should report to your doctor or health intensive care anaesthetist as soon as possible: allergic reactions like skin rash, itching or hives, swelling of the face, lips, or tongue breathing problems pain or trouble passing urine redness, blistering, peeling or loosening of the skin, including inside the mouth severe or watery diarrhea unusually weak or tired yellowing of the eyes, skin Side effects that usually do not require medical attention (report to your doctor or health intensive care anaesthetist if they continue or are bothersome): gas or heartburn genital or anal irritation headache joint or muscle pain nausea, vomiting What may interact with this medicine? probenecid some other antibiotics What if I miss a dose? If you miss a dose, take it as soon as you can. If it is almost time for your next dose, take only that dose. Do not take double or extra doses. There should be at least 4 to 6 hours between doses. Where should I keep my medicine? Keep out of the reach of children. Store at room temperature between 59 and 86 degrees F (15 and 30 degrees C). Throw away any unused medicine after the expiration date. What should I tell my health care provider before I take this medicine? They need to know if you have any of these conditions: kidney disease stomach or intestine problems, especially colitis an unusual or allergic reaction to cephalexin, other cephalosporins, penicillins, other antibiotics, medicines, foods, dyes or preservatives or trying to get breast-feeding What should I watch for while using this medicine? Tell your doctor or health intensive care anaesthetist if your symptoms do not begin to improve in a few days. Do not treat diarrhea with over the counter products. Contact your doctor if you have diarrhea that lasts more than 2 days or if it is severe and watery. If you have diabetes, you may get a false-positive result for sugar in your urine. Check with your doctor or health intensive care anaesthetist. You have been given the following additional information: Chest Pain, Uncertain Cause Bladder Infection, Female (Adult) Cephalexin Monohydrate Oral tablet (Electronically signed by Elfego Cameron Dr. 02/21/2017 11:43)
--- NOTE | 2017-02-21 11:43 | ED DISCHARGE INSTRUCTIONS ---
Patient: ANNETTE February General Instructions [facility] VisitID: [id number] [address] [place] [address] 41y, F Registration Date/Time: 02/18/2017 02/18/2017 19:00 BP: 161/87. HR: 78. RR: 20. O2 saturation: 99%. Temp: 98.6 F. Hypertensive. Oxygen saturation normal. Atypical chest pain (acute). Acute urinary tract infection. (acute facial edema). acute proteinuria. INSTRUCTIONS Warnings: GENERAL WARNINGS: Return or contact your physician immediately if your condition worsens or changes unexpectedly, if not improving as expected, or if other problems arise. SPECIFICALLY, return if you develop chest, neck, jaw, shoulder, arm, or back pain, difficulty breathing, a fluttering sensation in your chest, lightheadedness, fainting, excessive fatigue, or sudden sweating. Your Current Medications: CONTINUE TAKING THE FOLLOWING MEDICATIONS: None*. Prescription Medications: Keflex 500 mg: take 1 capsule orally every 8 hours for 5 days. No refill. Substitution is permissible. (disp 15 caps) Follow-up: Return to the emergency department as needed. Follow up with your doctor in three days. Reason for referral: recheck today's concerns. Summary of care provided to patient via paper. Screening today revealed the patient's blood pressure to be in the normal range. The patient should follow up with a primary care provider for blood pressure management. Understanding of the discharge instructions verbalized by patient. Follow-up with: [facility], , , [address], [place], [address] Follow up in three. Reason for referral: contact if you do not have a primary care doctor. Summary of care provided to patient via paper. ADDITIONAL INFORMATION Chest Pain, Uncertain Cause Chest pain can happen for a number of reasons. Sometimes the cause can not be determined. If yourcondition does not seem serious, and your pain does not appear to be coming from your heart, your doctor may recommend watching it closely. Sometimes the signs of a serious problem take more time to appear. Therefore, watch for the warning signs listed below. Home care After your visit, follow these recommendations: Rest today and avoid strenuous activity. Take any prescribed medicine as directed. Follow-up care Follow up with your doctor or this facility as instructed or if you do not start to feel better within 24 hours. Call 911 Get immediate medical attention if any of the following occur: A change in the type of pain: if it feels different, becomes more severe, lasts longer, or begins to spread into your shoulder, arm, neck, jaw or back Shortness of breath or increased pain with breathing Weakness, dizziness, or fainting Rapid heart beat Get prompt medical attention Call your doctor right away if any of the following occur: Cough with dark colored sputum (phlegm) or blood Fever of 100.4F(38C) or higher, or as directed by your health care provider Swelling, pain or redness in one leg Bladder Infection,Female (Adult) A bladder infection ("cystitis" or "UTI") usually causes a constant urge to urinate and a burning when passing urine. Urine may be cloudy, smelly or dark. There may be pain in the lower abdomen. A bladder infection occurs when bacteria from the vaginal area enter the bladder opening (urethra). This can occur from sexual intercourse, wearing tight clothing, dehydration and other factors. Home Care: Drink lots of fluids (at least 6-8 glasses a day, unless you must restrict fluids for other medical reasons). This will force the medicine into your urinary system and flush the bacteria out of your body. Avoid sexual intercourse until your symptoms are gone. Avoid caffeine, alcohol and spicy foods. These can irritate the bladder. A bladder infection is treated with antibiotics. You may also be given Pyridium (generic = phenazopyridine) to reduce the burning sensation. This medicine will cause your urine to become a bright orange color. The orange urine may stain clothing. You may wear a pad or panty-liner to protect clothing. Preventing Future Infections: Always wipe from front to back after a bowel movement. Keep the genital area clean and dry. Drink plenty of fluids each day to avoid dehydration. Both sexual partners should wash before intercourse. Urinate right after intercourse to flush out the bladder. Wear cotton underwear and cotton-lined panty hose; avoid tight-fitting pants. If you are on control pills and are having frequent bladder infections, discuss with your doctor. Follow Up: Return to this facility or see your doctor if ALL symptoms are not gone after three days of treatment. Get Prompt Medical Attention if any of the following occur: Fever of 100.4F (38C) or higher, or as directed by your healthcare provider No improvement by the third day of treatment Increasing back or abdominal pain Repeated vomiting; unable to keep medicine down Weakness, dizziness or fainting Vaginal discharge Pain, redness or swelling in the labia (outer vaginal area) Cephalexin Monohydrate Oral tablet What is this medicine? CEPHALEXIN (sef a ELIZABETH in) is a cephalosporin antibiotic. It is used to treat certain kinds of bacterial infections It will not work for colds, flu, or other viral infections. How should I use this medicine? Take this medicine by mouth with a full glass of water. Follow the directions on the prescription label. This medicine can be taken with or without food. Take your medicine at regular intervals. Do not take your medicine more often than directed. Take all of your medicine as directed even if you think you are better. Do not skip doses or stop your medicine early. Talk to your director of social services regarding the use of this medicine in children. While this drug may be prescribed for selected conditions, precautions do apply. What side effects may I notice from receiving this medicine? Side effects that you should report to your doctor or health critical care clinical nurse specialist as soon as possible: allergic reactions like skin rash, itching or hives, swelling of the face, lips, or tongue breathing problems pain or trouble passing urine redness, blistering, peeling or loosening of the skin, including inside the mouth severe or watery diarrhea unusually weak or tired yellowing of the eyes, skin Side effects that usually do not require medical attention (report to your doctor or health critical care clinical nurse specialist if they continue or are bothersome): gas or heartburn genital or anal irritation headache joint or muscle pain nausea, vomiting What may interact with this medicine? probenecid some other antibiotics What if I miss a dose? If you miss a dose, take it as soon as you can. If it is almost time for your next dose, take only that dose. Do not take double or extra doses. There should be at least 4 to 6 hours between doses. Where should I keep my medicine? Keep out of the reach of children. Store at room temperature between 59 and 86 degrees F (15 and 30 degrees C). Throw away any unused medicine after the expiration date. What should I tell my health care provider before I take this medicine? They need to know if you have any of these conditions: kidney disease stomach or intestine problems, especially colitis an unusual or allergic reaction to cephalexin, other cephalosporins, penicillins, other antibiotics, medicines, foods, dyes or preservatives or trying to get breast-feeding What should I watch for while using this medicine? Tell your doctor or health critical care clinical nurse specialist if your symptoms do not begin to improve in a few days. Do not treat diarrhea with over the counter products. Contact your doctor if you have diarrhea that lasts more than 2 days or if it is severe and watery. If you have diabetes, you may get a false-positive result for sugar in your urine. Check with your doctor or health critical care clinical nurse specialist. You have been given the following additional information: Chest Pain, Uncertain Cause Bladder Infection, Female (Adult) Cephalexin Monohydrate Oral tablet (Electronically signed by Elfego Cameron Dr. 02/21/2017 11:43)
--- NOTE | 2017-02-21 11:43 | ED MAR SUMMARY ---
..... Medication Administration Record [facility] [address] [place] [address] Patient: SARAH BRYANT Visit ID: [id number] 41y, F Weight: 51.2 kg Height/Length: 64 in BMI: 19.4 ALLERGIES: Opiods Start 19:13 02/18/2017 Adam Bustos R.N., Stop 19:44 02/18/2017 Adam Bustos RLoydaN. Medication Administered: IV NS (SALINE), Dose: IV Fluids over 1 hour(s), Rate: 1000 mL/hr, Dispensed: 1000 mL bag, Site: #2 left AC. Medication Ordered: IV NS : initial bolus 1000 mL (1000 mL/hr), then none - for X1 (NOW). Given 19:02/18/2017 Adam Bustos, R.N. Medication Administered: KEFLEX [PO] (CEPHALEXIN), Dose: 500 mg PO. Medication Ordered: Keflex PO 500 mg (NOW).
== END 2017-02-18 19:57 | disposition home or self-care (01) ==
LOC: ED SRH 16:35
DX: R07.89 Other chest pain (principal); N39.0 Urinary tract infection, site not specified; R80.9 Proteinuria, unspecified; Z88.5 Allergy status to narcotic agent; F17.210 Nicotine dependence, cigarettes, uncomplicated
CPT/HCPCS: 90004; 90100; 90469; 90616; 91320; 92690; 93070; 94060; 95059

== ENCOUNTER 2017-02-23 17:18 | Emergency (ER) | payer OTHER ==
--- NOTE | 2017-02-23 18:20 | DIAGNOSTIC IMAGING REPORT ---
PROCEDURE: XR CHEST 2 VIEW INDICATION: CHEST PAIN TECHNIQUE: PA and lateral views. COMPARISON: Compared to chest x-ray on 02/18/2017. FINDINGS: There is mild bibasilar subsegmental atelectasis (slightly more pronounced on the left). Mid and upper lungs are clear. Heart and mediastinum are normal. Thorax is normal. IMPRESSION: 1. Mild bibasilar subsegmental atelectasis (left greater than right). 2. Otherwise negative chest.
--- NOTE | 2017-02-23 19:54 | ED CLINICAL REPORT ---
Clinical Report - Physicians/Mid Levels [facility] [address] [place] [address] 02/23/2017 17:17 Patient: SARAH BRYANT M Time Seen: 17:46. Arrived- By private vehicle. Historian- patient. HISTORY OF PRESENT ILLNESS Chief Complaint: DYSPNEA and cough. This started several weeks ago and is still present. The dyspnea is described as moderate. The dyspnea is worsened by cough (nothing). The patient has had sputum production, a cough, fever and dyspnea on exertion. No sweating episodes, wheezing, chills or chest pain or discomfort. No calf pain, foot swelling, orthopnea, anxiety or dizziness. No tingling, numbness or palpitations. Similar symptoms previously: Occasionally. Recent medical care: Not recently seen/assessed. REVIEW OF SYSTEMS The patient has not had weight loss. No muscle aches, eye irritation, sore throat, nasal discharge or sinus drainage. No nausea, vomiting, abdominal pain, diarrhea or black stools. No bloody stools, headache, fainting episodes, blurred vision or difficulty with urination. No skin rash, enlarged lymph nodes or joint pain. Denies current . All systems otherwise negative, except as recorded above. PAST HISTORY Problems: Hypertension. Atypical Chest Pain. Additional Surgeries: Dilatation & Curettage. Laparoscopy. Medications: None. Allergies: Opiods. Definite Severe (Seizures). SOCIAL HISTORY Smoker- current status unknown. Alcohol use. History of drug use: marijuana. ADDITIONAL NOTES The nursing notes have been reviewed. PHYSICAL EXAM Vital Signs: 02/23/2017 17:33 BP: 174/89. HR: 102. RR: 20. O2 saturation: 95%. Temp: 102.3 F. Pain level now: 5/10. Have been reviewed. Appearance: Alert. No acute distress. Eyes: Pupils equal, round and reactive to light. Eyes normal inspection. ENT: Nose normal. Neck: Normal inspection. CVS: Normal heart rate and rhythm. Heart sounds normal. Pulses normal. Respiratory: No respiratory distress. Breath sounds normal. Abdomen: Soft and nontender. Back: Normal inspection. No CVA tenderness. Skin: Skin warm and dry. Normal skin color. No rash. Normal skin turgor. Extremities: Extremities exhibit normal ROM. No lower extremity edema. Neuro: Oriented X 3. No motor deficit. No sensory deficit. LABS, X-RAYS, AND EKG Chest X-ray: Normal heart size. Mediastinum normal. Great vessels normal. Soft tissues normal. No infiltrate. No fracture. No bony lesion present. (Atelectasis, no pneumonia.). Views: PA, lateral and AP. Technique: good. The X-rays were independently viewed by me, interpreted by the radiologist and contemporaneously by me and discussed with the radiologist. Prior films were not available for comparison. Laboratory Tests: UA-Culture if indicated: (RIVKA: 02/23/2017 18:15) ( [facility] [place] 02/23/[place] 18:46) Final results Test Result Flag Units (Reference) URINE COLOR BROWN URINE APPEARANCE CLOUDY URINE GLUCOSE NEGATIVE (NEGATIVE) URINE BILIRUBIN NEGATIVE (NEGATIVE) URINE KETONE NEGATIVE (NEGATIVE) URINE SPECIFIC GRAVITY 1.020 (1.010-1.030) URINE PH 6.0 (5.0-8.0) URINE PROTEIN 3+ (NEGATIVE) URINE UROBILINOGEN 0.2 EU/dL (0.2-1.0) URINE NITRITE NEGATIVE (NEGATIVE) URINE BLOOD 3+ (NEGATIVE) URINE LEUK ESTERASE NEGATIVE (NEGATIVE) URINE RBC 10-25 rbc/hpf (0-1) URINE WBC 15-25 wbc/hpf (0-1) URINE EPITHELIAL CELLS 10-15 EPI/hpf (0-5) URINE BACTERIA FEW (1+) (NONE SEEN) URINE COMMENT CULTURE INDICATED 15-20 HYALINE CASTS/lpf1-3 FINE GRANULAR CASTS/lpfURINE CULTURES ARE SET-UP BASED ON THE FOLLOWING CRITERIA:POSITIVE NITRITEPOSITIVE LEUKOCYTE ESTERASEGREATER THAN 10 WHITE BLOOD CELLSMODERATE (2+) OR GREATER BACTERIA Urine: (RIVKA: 02/23/2017 18:15) ( Mscvd 02/23/2017 18:36) Final results Test Result Flag Units (Reference) URINE NEGATIVE CBC w Diff: (RIVKA: 02/23/2017 17:45) ( MsgRcvd 02/23/2017 17:58) Final results Test Result Flag Units (Reference) WHITE BLOOD COUNT 5.8 K/uL (4.5-11.5) RED BLOOD COUNT 4.10 M/uL (4.00-5.20) HEMOGLOBIN 12.6 gm/dL (12.0-16.0) HEMATOCRIT 37.4 % (36.0-46.0) MEAN CELL VOLUME 91 fL (80-100) MEAN CORPUSCULAR HGB 31 pg (26-34) MEAN CORPUSCULAR HGB CONC 34 g/dL (31-37) RED CELL DISTRIBUTION WIDTH 12.9 % (11.6-14.8) PLATELET COUNT 169 K/uL (150-400) NEUTROPHIL % 79.8 H % (50-75) LYMPH % 12.1 L % (25-40) MONO % 7.8 % (3-14) EOSINOPHIL % 0 % (0-4) BASOPHIL % 0.3 % (0-2) CMP: (RIVKA: 02/23/2017 17:45) ( MsgRcvd 02/23/2017 18:06) Final results Test Result Flag Units (Reference) GLUCOSE 116 H mg/dL (70-110) BUN 23 H mg/dL (7-18) CREATININE 1.2 mg/dL (0.6-1.3) Estimated GFR 52.36 mL/min Estimated GFR- >60 mL/min Note: Persistent reduction over 3 months in eGFR<60 mL/min/1.73 m2 defines CKD. Patients with eGFR values>=60 mL/min/1.73 m2 may also have CKD if evidence ofpersistent proteinuria. Additional information may be foundat www.kidney.org. SODIUM 131 L mmol/L (136-145) POTASSIUM 4.6 mmol/L (3.5-5.1) CHLORIDE 100 mmol/L (98-107) CARBON DIOXIDE 21 mmol/L (21-32) CALCIUM 8.0 L mg/dL (8.5-10.1) TOTAL PROTEIN 5.9 L g/dL (6.4-8.2) ALBUMIN 2.2 L g/dL (3.3-5.0) BILIRUBIN, TOTAL 0.4 mg/dL (0.0-1.0) ALKALINE PHOSPHATASE 48 U/L (46-116) AST (SGOT) 21 U/L (15-37) ALT (SGPT) 15 U/L (12-78) Rapid Influenza Screen: (RIVKA: 02/23/2017 18:40) ( MsgRcvd 02/23/2017 18:57) Final results SPECIMEN DESCRIPTION: SWAB Test Result Flag Units (Reference) RAPID INFLUENZA SCREEN DATE: 02/23/17 INFLUENZA A: NEGATIVE SCREEN FOR INFLUENZA A INFLUENZA B: NEGATIVE SCREEN FOR INFLUENZA B . Pulse Oximetry: 02/23/2017 17:33 O2 saturation: 95%. (FIO2 - room air). Interpretation: normal. PROGRESS AND PROCEDURES Course of Care: PT was worked up for her cough, SOB and fever with bloodwork, CXR, and influenza test. Work-up was negative. Pt was given Zithromax for bronchitis. PT's BP was improved , though still above normal, by the end of the pt's stay. No emergent condition was identified. Patient counseled in person regarding the patient's stable condition, test results, diagnosis and need for follow-up. Concerns were addressed. Old medical records reviewed. Disposition: Discharged. Condition: stable and improved. CLINICAL IMPRESSION Acute bacterial bronchitis. INSTRUCTIONS Warnings: GENERAL WARNINGS: Return or contact your physician immediately if your condition worsens or changes unexpectedly, if not improving as expected, or if other problems arise. Prescription Medications: Zithromax Z-Marty: Take according to package instructions 2 orally today, followed by 1 orally every day for the next 4 days. Total course 5 days. No refills. Substitution is permissible. Follow-up: Follow up with your doctor in five days if not better. Call for the next available appointment. Understanding of the discharge instructions verbalized by patient. (Electronically signed by Genia Jean-Baptiste MD 03/04/2017 18:42)
--- NOTE | 2017-02-23 19:54 | ED ORDER SUMMARY ---
..... Patient: ANNETTE February OrderSheet [facility] VisitID: [id number] [place] [address] 41y, F Registration Date/Time: 02/23/2017 ORDER SHEET Weight: 52.1 kg Allergies: Opiods GENERAL ORDERS: CBC w Diff Urgent (17:47 02/23/2017 Kane R.N. verbal order read back to Bautista NOLAN) (17:47 JRsilvestreelli R.N.) CMP Urgent (17:47 02/23/2017 JRsangeeta R.N. verbal order read back to Bautista NOLAN) (17:47 Kane R.N.) Urine Urgent (17:49 02/23/2017 Kane R.N. verbal order read back to Bautista NOLAN) (Ack 18:02 Rocío) (18:23 JSanders R.N.) UA-Culture if indicated Urgent (17:49 02/23/2017 Kane R.N. verbal order read back to Bautista NOLAN) (Ack 18:02 Rocío) (18:23 JSanders R.N.) Chest 2V Urgent (17:53 02/23/2017 Kane R.N. verbal order read back to Bautista NOLAN) (Ack 18:02 Rocío) (18:16 MCampbell) Rapid Influenza Screen (Nasal Pharyngeal) (swab) Urgent (18:17 02/23/2017 Bautista NOLAN) (Ack 18:20 Rocío) (18:39 JSanders R.N.) MEDICATION ORDERS: Zithromax PO 500 mg (NOW) (19:52 02/23/2017 Bautista NOLAN) (20:07 TBowen R.N.) IV FLUIDS: IV Saline Lock (17:47 02/23/2017 Kane R.N. verbal order read back to Bautista NOLAN) (17:56 JSanders R.N.) ORDER SHEET NOTES: [Electronically signed by Chioma Rothman R.N. (20:09 02/23/2017)] [Electronically signed by Genia Jean-Baptiste MD (18:42 03/04/2017)] [Electronically locked/signed by Chioma Rothman R.N. (20:09 02/23/2017)Fernando
--- NOTE | 2017-02-23 19:54 | ED NURSING NOTES ---
Clinical Report - Nurses [facility] [address] [place] [address] 02/23/2017 17:17 Patient: SARAH BRYANT TRIAGE Triage time 17:33 Feb 23 2017. Acuity: LEVEL 3. Chief Complaint: DIFFICULTY BREATHING. Alert. SEPSIS SCREEN: Sepsis Screen. Infection suspected/documented. Temperature greater than 38.3 degrees C (101 degrees F) and heart rate greater than 90. --17:44 Adam Rodriguez R.N. 17:33 02/23/17. BP: 174/89. HR: 102. RR: 20. O2 saturation: 95% on room air. Temp: 102.3 F. Pain level now: 5/10. Additional comments: Chest Pain. --17:44 Adam Rodriguez R.N. Weight: 52.1 kg. Height/Length: 63 inches Per Patient. BMI: 20.4. --17:35 Adam Rodriguez R.N. Medications None. --17:40 Adam Rodriguez R.N. Allergies Opiods. Definite Severe (Seizures) --17:40 Adam Rodriguez R.N. Medication/allergy information source: the patient. --17:44 Adam Rodriguez R.N. History Arrived by private vehicle. Historian: patient. Accompanied by family. Primary physician (Joan Gates). ( Dyspnea ;with fever.). Onset. (about 3 - 4 weeks ago). She has had fever. She has had a nonproductive cough (barky). ( Dyspnea). Treatment [employer]: (Keflex 500mg). PAST MEDICAL HX: Hypertension. Immunizations: status is unknown. Last normal menstrual period was 4 weeks ago. SOCIAL HX: Light tobacco smoker (cigarette)- less than 1/2 a pack per day. Alcohol use; consumes wine by the glass daily. History of drug use: marijuana. No infectious disease exposure. ABUSE ASSESSMENT: No report of abuse. FALL RISK ASSESSMENT: Fall risk assessment completed. No fall risk identified. NUTRITIONAL RISK ASSESSMENT: The nutritional risk assessment revealed no deficiencies. FUNCTIONAL ASSESSMENT: Functional assessment: no impairments noted. LEARNING NEEDS ASSESSMENT: The learning needs assessment revealed no barriers. SKIN INTEGRITY ASSESSMENT: Skin integrity risk assessment completed. No skin integrity risk identified. --17:44 Adam Rodriguez R.N. PROBLEMS: UTI - Urinary Tract Infection. Atypical Chest Pain. --17:42 Adam Rodriguez R.N. ADDITIONAL SURGERIES: Dilatation & Curettage. Laparoscopy. --17:42 Adam Rodriguez R.N. Interventions ID band on patient. To treatment room. --17:44 Adam Rodriguez R.N. PHYSICAL ASSESSMENT Ambulatory to room. GENERAL / NEURO / PSYCH: Alert. Oriented X 4. HEENT: Mucous membranes are pink. RESPIRATORY: No respiratory distress. CVS: Cardiac rhythm: (RRR). Capillary refill less than 2 seconds. GI / : ( Nausea). SKIN: Skin is warm and dry. Normal skin turgor. --17:45 Adam Rodriguez R.N. NURSING PROGRESS NOTES Patient gowned. Reassurance given. Patient identifiers checked. Call light placed in reach. Side rails up x 2. Bed placed in lowest position. Brakes of bed on. Patient ready for evaluation- chart flagged and ED physician notified. --17:45 Adam Rodriguez R.N. 17:56 02/23/2017 Site #1 started via IV in the left antecubital space with an 20g angiocath, with aseptic technique and good blood return; one attempt. Blood drawn: rainbow set and cultures x1. Labeled in the presence of the patient and sent to the lab. Saline lock flushed with 10 mL saline. --17:56 Jeanette Nickerson R.N. Patient transported to radiology by stretcher Amarin. (17:58 Feb 23 2017). --17:58 Jeanette Nickerson R.N. 18:39 02/23/17. BP: 164/97 (regular adult cuff) taken on the left arm, while lying. HR: 97. RR: 18. O2 saturation: 96% on room air. Pain level now: 01/26. --18:40 Jeanette Nickerson R.N. Care transferred and report given (Chioma ANG). --19:31 Jeanette Nickerson R.N. 20:07 02/23/2017 Zithromax PO 500 mg given. Allergies verified and confirmed 5 rights. --20:07 Geovany Jean-Baptiste DISPOSITION / DISCHARGE 20:08 02/23/2017 Site #1 removed upon discharge. Catheter intact. Bandaid applied. --20:08 Geovany Jean-Baptiste Departure time: 20:09. Condition at departure: stable. No learning barriers present. Discharge instructions provided and reviewed with the patient. Reviewed medication(s) side effects, precautions, dosing and course information. Prescription(s) given to the patient. Follow up contact number with PCP. Patient verbalized understanding. Written instructions provided in Andorran. No warning instructions, treatment instructions, referrals given to the patient, diet instructions or activity restrictions. No note given or stop smoking instructions. The patient was discharged by the physician. She was discharged home and accompanied by family. She left the Emergency Department ambulatory and via private vehicle. Family member driving. FALL RISK ASSESSMENT: Fall risk assessment completed. No fall risk identified. --20:09 Geovany Jean-Baptiste 20:08 02/23/17. BP: 156/94. HR: 110. RR: 18. O2 saturation: 97%. Temp: 99.1 F. Pain level now: 02/26. --20:09 Geovany Jean-Baptiste Locked/Released at 02/23/2017 20:09 by Geovany Jean-Baptiste
--- NOTE | 2017-02-23 19:54 | ED ORDER SUMMARY ---
..... Patient: ANNETTE February OrderSheet [facility] VisitID: [id number] [place] [address] 41y, F Registration Date/Time: 02/23/2017 ORDER SHEET Weight: 52.1 kg Allergies: Opiods GENERAL ORDERS: CBC w Diff Urgent (17:47 02/23/2017 Kane R.N. verbal order read back to Bautista NOLAN) (17:47 JRsilvestreelli R.N.) CMP Urgent (17:47 02/23/2017 JRsangeeta R.N. verbal order read back to Bautista NOLAN) (17:47 Kane R.N.) Urine Urgent (17:49 02/23/2017 Kane R.N. verbal order read back to Bautista NOLAN) (Ack 18:02 Rocío) (18:23 JSanders R.N.) UA-Culture if indicated Urgent (17:49 02/23/2017 Kane R.N. verbal order read back to Bautista NOLAN) (Ack 18:02 Rocío) (18:23 JSanders R.N.) Chest 2V Urgent (17:53 02/23/2017 Kane R.N. verbal order read back to Bautista NOLAN) (Ack 18:02 Rocío) (18:16 MCampbell) Rapid Influenza Screen (Nasal Pharyngeal) (swab) Urgent (18:17 02/23/2017 Bautista NOLAN) (Ack 18:20 Rocío) (18:39 JSanders R.N.) MEDICATION ORDERS: Zithromax PO 500 mg (NOW) (19:52 02/23/2017 Bautista NOLAN) (20:07 TBowen R.N.) IV FLUIDS: IV Saline Lock (17:47 02/23/2017 Kane R.N. verbal order read back to Bautista NOLAN) (17:56 JSanders R.N.) ORDER SHEET NOTES: [Electronically signed by Chioma Rothman R.N. (20:09 02/23/2017)] [Electronically signed by Genia Jean-Baptiste MD (18:42 03/04/2017)] [Electronically locked/signed by Chioma Rothman R.N. (20:09 02/23/2017)Fernando
--- NOTE | 2017-03-04 18:42 | ED MED RECONCILIATION SUMMARY ---
Patient: ANNETTE, February Medication Reconciliation Report [facility] VisitID: [id number] [place] [address] 41y, F Registration Date/Time: 02/23/2017 Weight: 52.1 kg Height/Length: 63 in. BMI: 20.4 ALLERGIES: Opiods The patient's Home Medications are listed below: NONE. The source(s) of the original Home Medication information: patient The following Medications were given to the patient in the Emergency Department: Zithromax [PO] PO 500 mg, administered: 02/23/2017 8:07:00 PM The following Medications were prescribed to the patient: Zithromax Z-Marty: Take according to package instructions 2 orally today, followed by 1 orally every day for the next 4 days. Total course 5 days. No refills. Substitution is permissible. -- Genia Jean-Baptiste MD
--- NOTE | 2017-03-04 18:42 | ED MED RECONCILIATION SUMMARY ---
Patient: ANNETTE, February Medication Reconciliation Report [facility] VisitID: [id number] [place] [address] 41y, F Registration Date/Time: 02/23/2017 Weight: 52.1 kg Height/Length: 63 in. BMI: 20.4 ALLERGIES: Opiods The patient's Home Medications are listed below: NONE. The source(s) of the original Home Medication information: patient The following Medications were given to the patient in the Emergency Department: Zithromax [PO] PO 500 mg, administered: 02/23/2017 8:07:00 PM The following Medications were prescribed to the patient: Zithromax Z-Marty: Take according to package instructions 2 orally today, followed by 1 orally every day for the next 4 days. Total course 5 days. No refills. Substitution is permissible. -- Genia Jean-Baptiste MD
--- NOTE | 2017-03-04 18:42 | ED MAR SUMMARY ---
..... Medication Administration Record [facility] [address] [place] [address] Patient: SARAH BRYANT Visit ID: [id number] 41y, F Weight: 52.1 kg Height/Length: 63 in BMI: 20.4 ALLERGIES: Opiods Given 20:07 02/23/2017 Geovany Jean-Baptiste Medication Administered: ZITHROMAX [PO], Dose: 500 mg PO. Medication Ordered: Zithromax PO 500 mg (NOW).
--- NOTE | 2017-03-04 18:42 | ED DISCHARGE INSTRUCTIONS ---
Patient: ANNETTE, February General Instructions [facility] VisitID: [id number] [place] [address] 41y, F Registration Date/Time: 02/23/2017 Acute bacterial bronchitis. INSTRUCTIONS Warnings: GENERAL WARNINGS: Return or contact your physician immediately if your condition worsens or changes unexpectedly, if not improving as expected, or if other problems arise. Prescription Medications: Zithromax Z-Marty: Take according to package instructions 2 orally today, followed by 1 orally every day for the next 4 days. Total course 5 days. No refills. Substitution is permissible. Follow-up: Follow up with your doctor in five days if not better. Call for the next available appointment. Understanding of the discharge instructions verbalized by patient. ADDITIONAL INFORMATION Bronchitis (Adult: Abx Tx) BRONCHITIS is an infection of the air passages (bronchial tubes). It often occurs during the common cold. Symptoms include cough with mucus (phlegm) and low-grade fever. Bronchitis usually lasts 7-14 days. Mild cases can be treated with simple home remedies. More severe infection is treated with an antibiotic. Home Care: If symptoms are severe, rest at home for the first 2-3 days. When you resume activity, don't let yourself get too tired. Do not smoke. Avoid being exposed to the smoke of others. You may use acetaminophen (Tylenol) or ibuprofen (Motrin, Advil) to control fever or pain, unless another medicine was prescribed for this. [NOTE: If you have chronic liver or kidney disease or ever had a stomach ulcer or GI bleeding, talk with your doctor before using these medicines.] Your appetite may be poor, so a light diet is fine. Avoid dehydration by drinking 6-8 glasses of fluids per day (water, soft, drinks, juices, tea, soup, etc.). Extra fluids will help loosen secretions in the lungs. Jynp-[id number] cough medicines that containdextromethorphan(such as Robitussin DM) and decongestants (Actifed or Sudafed) may help relieve cough and congestion. [NOTE: Do not use decongestants if you have high blood pressure.] Finish all antibiotic medicine, even if you are feeling better after only a few days. Follow Up with your doctor or as directed if you dont start to feel better after three days. [NOTE: If you are age 65 or older, or if you have chronic asthma or COPD, we recommend a PNEUMOCOCCAL VACCINATION every five years and a yearly INFLUENZAVACCINATION (FLU-SHOT) every . Ask your doctor about this. If you had an X-ray, a radiologist will review it. You will be notified of any new findings that may affect your care.] Get Prompt Medical Attention if any of the following occur: Fever over 100.4F (38.0C) for more than three days Trouble breathing, wheezing or pain with breathing Coughing up blood or increased amounts of colored sputum Weakness, drowsiness, headache, facial pain, ear pain or a stiff neck You have been given the following additional information: Bronchitis, Antiobiotic Treatment (Adult) (Electronically signed by Genia Jean-Baptiste MD 03/04/2017 18:42)
--- NOTE | 2017-03-04 18:42 | ED MAR SUMMARY ---
..... Medication Administration Record [facility] [address] [place] [address] Patient: SARAH BRYANT Visit ID: [id number] 41y, F Weight: 52.1 kg Height/Length: 63 in BMI: 20.4 ALLERGIES: Opiods Given 20:07 02/23/2017 Geovany Jean-Baptiste Medication Administered: ZITHROMAX [PO], Dose: 500 mg PO. Medication Ordered: Zithromax PO 500 mg (NOW).
== END 2017-02-23 20:00 | disposition home or self-care (01) ==
LOC: ED SRH 17:18
DX: J20.8 Acute bronchitis due to other specified organisms (principal); I10 Essential (primary) hypertension
CPT/HCPCS: 90004; 90100; 90469; 91400; 93070; 95059